=== PATIENT | male | born 1975 | race Hispanic/Latino ===

== ENCOUNTER 2020-09-18 22:00 | Emergency (ER) | payer SELFPAY ==
[2020-09-18] MEDS ORDERED: ONDANSETRON ODT 4 MG TAB ONE (22:55)
[2020-09-18] MEDS ORDERED: CYCLOBENZAPRINE HCL 10 MG TABLET ONE (22:55)
== END 2020-09-19 00:06 | disposition home or self-care (01) ==
LOC: EDH 22:00
DX: S63.253A Unspecified dislocation of left middle finger, initial encounter (principal); S23.41XA Sprain of ribs, initial encounter; S63.613A Unspecified sprain of left middle finger, initial encounter; S63.615A Unspecified sprain of left ring finger, initial encounter; S20.212A Contusion of left front wall of thorax, initial encounter; E11.9 Type 2 diabetes mellitus without complications; I10 Essential (primary) hypertension; Z88.0 Allergy status to penicillin; Z90.49 Acquired absence of other specified parts of digestive tract; W01.0XXA Fall on same level from slipping, tripping and stumbling without subsequent striking against object, initial encounter; Y93.E1 Activity, personal bathing and showering; Y92.89 Other specified places as the place of occurrence of the external cause; Y99.8 Other external cause status
CPT/HCPCS: 29130; 71101; 73140